=== PATIENT | female | born 1970 | race Caucasian/White ===

== ENCOUNTER → 2019-09-08 | Outpatient (CLI) | payer BC ==
[~2019-09-08] MED LIST: IOPAMIDOL 370 MG/ML 200 ML INFUS..BTL INJ ONE; SODIUM CHLORIDE 0.9% 50ML 50 ML ONE
--- NOTE | 2019-09-08 12:18 | Diagnostic Imaging Report ---
CT of the abdomen and pelvis, with contrast, 09/08/2019. History: Generalized abdominal pain. Comparison: None available. Technique: Multidetector CT scanning of the abdomen and pelvis was performed from the level of the lung bases to the inferior pubic rami after intravenous administration of contrast. Coronal and sagittal multiplanar reformations were obtained. RADIATION DOSE: Total DLP: 643 mGy*cm Dose modulation, iterative reconstruction, and/or weight based adjustment of the mA/kV was utilized to reduce the radiation dose to as low as reasonably achievable. Discussion: LUNG BASES: No visualized abnormalities. ABDOMEN: Cholecystectomy clips are present. A subcentimeter hypodensity is present in the right renal lower pole which is too small to characterize. The liver, biliary tree, spleen, pancreas, adrenal glands, and left kidney are normal. The hepatic vein, portal vein, and splenic vein are patent. The abdominal aorta is within normal limits for size. A retroaortic left renal vein is noted. A tiny fat-containing umbilical hernia is present. A 4 cm abdominal wall mesh is present in the midline superiorly. There is no recurrent ventral hernia. There is no adjacent fluid or inflammatory change. The stomach, small bowel, and large bowel are unremarkable. There is no bowel dilatation. The appendix is visualized and is normal. There is no evidence of adenopathy or free fluid. PELVIS: The bladder, uterus, and adnexa are normal in appearance. There is no evidence of free fluid or adenopathy. BONES AND SOFT TISSUES: No acute abnormality. IMPRESSION: 1. Small superior abdominal wall mesh without evidence of recurrent ventral hernia or associated abdominal wall abnormality. 2. Tiny fat-containing umbilical hernia. 3. Status post cholecystectomy. 4. Subcentimeter right renal hypodensity which is too small to characterize. Signed by: Cordell Allen on 09/08/2019 12:15 PM
== END ==
LOC: CT 09:40
PROVIDERS: ATTEND Internal Medicine Gastroenterology
DX: R10.84 Generalized abdominal pain (principal)
CPT/HCPCS: 74177; 81025; Q9967

== ENCOUNTER → 2019-10-05 | Day surgery (SDC) | payer BC ==
[~2019-10-05] MED LIST changes: +FENTANYL CITRATE/PF 100MCG/2 ML INJ ONE; +HYOSCYAMINE 0.125 MG TAB ONE; -IOPAMIDOL 370 MG/ML 200 ML INFUS..BTL INJ ONE; +LEXAPRO10 MG PO; +MIDAZOLAM HCL 2 MG/2 ML VIAL ONE; +OMEPRAZOLE40 MG PO; +PROPOFOL IV EMULSION 10 MG/ML 50 ML VIAL ONE; -SODIUM CHLORIDE 0.9% 50ML 50 ML ONE; +[UNRECOGNIZED DRUG - OTHER] PO
--- OUTSIDE RECORDS SUMMARY | 2019-10-05 10:52 | XMS REPORT ---
Author Author [facility] Organization [facility] Address Unknown Phone Unavailable Care Team Providers Care Research Rn Spec Name Role Phone ROSA COELLO Unavailable Unavailable Payers Payer Name Policy Type Policy Number Effective Date Expiration Date Problems This patient has no known problems. Allergies, Adverse Reactions, Alerts Allergy Name Allergy Type Status Severity Reaction(s) Onset Date Inactive Date Treating Clinician Comments Penicillins DA Active LA 2017-07-17 00:00:00 aspirin DA Active SV 2017-07-17 00:00:00 gluten FA Active SV 2017-07-17 00:00:00 Medications This patient has no known medications. Results Test Description Test Time Test Comments Text Results Atomic Results Result Comments CT ABDOMEN/PELVIS W 2019-09-08 11:55:00 [place] [address] Patient Name: AZAEL MAHAN MR #: [id number] : 1970 Age/Sex: 49/F Req #: [id number] Adm Physician: Ordered by: ROSA COELLO MD Report #: [id number] Location: CT Room/Bed: Procedure: [id number] CT/CT ABDOMEN/PELVIS W Exam Date: 09/08/19 Exam Time: 1030 REPORT STATUS: Signed CT of the abdomen and pelvis, with contrast, 019. History: Generalized abdominal pain. Comparison: None available. Technique: Multidetector CT scanning of the abdomen and pelvis was performed from the level of the lung bases to the inferior pubic rami after intravenous administration of contrast. Coronal and sagittal multiplanar reformations were obtained. RADIATION DOSE: Total DLP: 643 mGy*cm Dose modulation, iterative reconstruction, and/or weight based adjustment of the mA/kV was utilized to reduce the radiation dose to as low as reasonably achievable. Discussion: LUNG BASES: No visualized abnormalities. ABDOMEN: Cholecystectomy clips are present. A subcentimeter hypodensity is present in the right renal lower pole which is too small to characterize. The liver, biliary tree, spleen, pancreas, adrenal glands, and left kidney are normal. The hepatic vein, portal vein, and splenic vein are patent. The abdominal aorta is within normal limits for size. A retroaortic left renal vein is noted. A tiny fat-containing umbilical hernia is present. A 4 cm abdominal wall mesh is present in the midline superiorly. There is no recurrent ventral hernia. There is no adjacent fluid or inflammatory change. The stomach, small bowel, and large bowel are unremarkable. There is no bowel dilatation. The appendix is visualized and is normal. There is no evidence of adenopathy or free fluid. PELVIS: The bladder, uterus, and adnexa are normal in appearance. There is no evidence of free fluid or adenopathy. BONES AND SOFT TISSUES: No acute abnormality. IMPRESSION: 1. Small superior abdominal wall mesh without evidence of recurrent ventral hernia or associated abdominal wall abnormality. 2. Tiny fat-containing umbilical hernia. 3. Status post cholecystectomy. 4. Subcentimeter right renal hypodensity which is too small to characterize. Signed by: Deisy Allen on 09/08/2019 12:15 PM Dictated By: DEISY ALLEN MD Transcribed By: DORETHA on 09/08/191214 COPY TO: ROSA COELLO MD
[2019-10-05 16:05] VITALS: BP 122/80
[2019-10-05 16:05] LABS: WBC,FECAL (FECAL LACTOFERRIN) NEGATIVE (NEGATIVE)
--- NOTE | 2019-10-06 05:59 | Operative Report ---
DATE OF PROCEDURE: SURGEON: Mundo Vicente MD PROCEDURES: EGD with biopsies and colonoscopy with polypectomy and biopsies. REFERRING PHYSICIAN: Dr. Stoddard. INDICATION FOR EGD: Dyspepsia. INDICATIONS FOR COLONOSCOPY: Crampy lower abdominal pain, chronic diarrhea. MEDICATIONS: The patient was done under MAC, please see anesthesiologist's note. PROCEDURE IN DETAIL: With the patient in the left lateral decubitus position, a flexible fiberoptic Olympus gastroscope was introduced into the esophagus under direct visualization without any difficulty. There was some patchy erythema noted in distal esophagus. Minute tongues of velvety red mucosa were noted to extend proximally from the GE junction. Biopsies were obtained to rule out Christine's. The scope was then advanced with ease into the stomach traversing a small hiatal hernia. Mucosa overlying the antrum and the body revealed some diffuse erythema and [id number] edema and biopsies were obtained, sent to stain for H. pylori. Minute hyperplastic appearing polyps were noted in the body of the stomach and some were partially excised with the cold biopsy forceps. The pylorus was intubated with ease and the scope was advanced all the way to the second portion of the duodenum. Biopsies were obtained from the second portion and duodenal bulb to rule out sprue. The scope was then withdrawn back into the stomach and retroflexed, and mucosa overlying the fundus and cardia appeared to be within normal limits. The scope was then straightened out, it was subsequently withdrawn. The patient tolerated the procedure well. IMPRESSION: 1. Mild distal esophagitis. 2. Rule out Christine esophagus. 3. Small sliding hiatal hernia. 4. Gastritis, biopsied, biopsies sent to stain for H. pylori. 5. Gastric polyps, hyperplastic appearing, body of stomach, partially excised with the cold biopsy forceps. DICTATION ENDS HERE Mundo Vicente MD [facility] [place] /[id number]
[2019-10-06 15:14] LABS: C DIFFICILE TOXIN A&B AMP PROB NEGATIVE (NEGATIVE)
== END | disposition home or self-care (01) ==
LOC: OR 10:46
PROVIDERS: ATTEND Internal Medicine Gastroenterology
DX: R19.7 Diarrhea, unspecified (principal); R10.9 Unspecified abdominal pain; K90.0 Celiac disease; K92.1 Melena; Z88.6 Allergy status to analgesic agent; Z88.0 Allergy status to penicillin; Z91.018 Allergy to other foods; E06.3 Autoimmune thyroiditis; K44.9 Diaphragmatic hernia without obstruction or gangrene; R06.02 Shortness of breath; K20.9 Esophagitis, unspecified; K29.70 Gastritis, unspecified, without bleeding; K31.7 Polyp of stomach and duodenum; K63.5 Polyp of colon; K51.50 Left sided colitis without complications; Z98.890 Other specified postprocedural states; K62.89 Other specified diseases of anus and rectum; K64.8 Other hemorrhoids; K31.9 Disease of stomach and duodenum, unspecified
CPT/HCPCS: 36415; 43239; 45380; 83630; 83993; 84702; 87045; 87177; 87328; 87493; J2250; J2704; J3010; 45378; 45384

== ENCOUNTER 2022-06-18 15:26 | Emergency (ER) | payer BC ==
[~2022-06-18] VITALS: Ht 172.7 cm; Wt 99.8 kg
[~2022-06-18 15:26] MED LIST changes: -FENTANYL CITRATE/PF 100MCG/2 ML INJ ONE; -HYOSCYAMINE 0.125 MG TAB ONE; -MIDAZOLAM HCL 2 MG/2 ML VIAL ONE; -PROPOFOL IV EMULSION 10 MG/ML 50 ML VIAL ONE
[2022-06-18 15:54] LABS: BASOPHILS % 0.8 % (0.0-1.0); EOSINOPHILS # (AUTO) 0.1 (0.0-0.4); EOSINOPHILS % 2.3 % (0.0-6.0); HEMATOCRIT 38.2 % (34.2-44.1); HEMOGLOBIN 12.6 g/dL (12.0-16.0); LYMPHOCYTES # (AUTO) 1.4 (1.0-3.2); LYMPHOCYTES % 27.1 % (18.0-39.1); MEAN CORPUSCULAR HEMOGLOBIN 28.8 pg (28-32); MEAN CORPUSCULAR VOLUME 87.4 fL (81-99); MONOCYTES # (AUTO) 0.4 (0.2-0.8); NEUTROPHILS # (AUTO) 3.2 (2.1-6.9); NEUTROPHILS % 61.4 % (38.7-80.0); PLATELET COUNT 332 x10e3/uL (140-360); RED BLOOD COUNT 4.37 x10e6/uL (3.6-5.1)
[2022-06-18 16:14] LABS: ALBUMIN 3.6 g/dL (3.5-5.0); ALBUMIN/GLOBULIN RATIO 0.9 (0.8-2.0); ANION GAP 15.1 mmol/L (8-16); CALCIUM 8.8 mg/dL (8.4-10.2); CREATININE, SERUM 0.77 mg/dL (0.57-1.11); POTASSIUM 4.1 mmol/L (3.5-5.1)
[2022-06-18 17:28] VITALS: BP 123/77
== END 2022-06-18 17:58 | disposition home or self-care (01) ==
LOC: ER 15:31
DX: R06.02 Shortness of breath (principal); R07.89 Other chest pain; I10 Essential (primary) hypertension; I50.9 Heart failure, unspecified
CPT/HCPCS: 36415; 71045; 80053; 83880; 84484; 85025; 93005; 99284

== ENCOUNTER → 2022-11-06 | Outpatient (CLI) | payer BC | LOC: MRI 10:03 | PROVIDERS: ATTEND Specialist | DX: M23.91 Unspecified internal derangement of right knee (principal) ==

== ENCOUNTER → 2025-01-31 | Day surgery (SDC) | payer BC ==
[~2025-01-31] MED LIST changes: +B12 ACTIVE1000 MCG; +CLARITIN10 MG PO; +D3-5000125 MCG; +DIM PLUS CDG C1 EACH; +FENTANYL CITRATE/PF 100MCG/2 ML INJ ONE; +GLUCAGON FOR INJ 1 MG VIAL ONE; +LIDOCAINE HCL 2% LOCAL INJ 5 ML SDV VIAL INJ ONE; +METOCLOPRAMIDE HCL 10 MG/2ML VIAL ONE; +MIDAZOLAM HCL 2 MG/2 ML VIAL ONE; +MOUNJARO15 MG/0.5; +PROPOFOL IV EMULSION 10 MG/ML 20 ML VIAL ONE; +PROPOFOL IV EMULSION 50 ML IV ONE; +TRAZODONE HCL100 MG PO
[2025-01-31] MEDS: LACTATED RINGER'S 1,000 ML ONE (11:03)
[2025-01-31 12:59] VITALS: TEMP 97.8
[2025-01-31 13:30] VITALS: BP 121/65; PULSE 79; RESP 14; O2SAT 97
[2025-02-03 13:12] LABS: ENDOMYSIAL ANTIBODIES, IGA Negative (Negative)
[2025-02-03 13:49] LABS: IMMUNOGLOBULIN A 209 mg/dL (87-352); TISSUE TRANSGLUTAMINASE IGA AB 3 U/mL (0-3)
== END | disposition home or self-care (01) ==
LOC: OR 10:48
PROVIDERS: ATTEND Internal Medicine Gastroenterology
DX: K29.50 Unspecified chronic gastritis without bleeding (principal); Z86.0100 Personal history of colon polyps, unspecified; K31.7 Polyp of stomach and duodenum; K29.80 Duodenitis without bleeding; K31.89 Other diseases of stomach and duodenum; K20.90 Esophagitis, unspecified without bleeding; K90.0 Celiac disease; K44.9 Diaphragmatic hernia without obstruction or gangrene; K21.9 Gastro-esophageal reflux disease without esophagitis; K64.8 Other hemorrhoids; D72.820 Lymphocytosis (symptomatic); F41.9 Anxiety disorder, unspecified; Z72.0 Tobacco use; Z88.6 Allergy status to analgesic agent; Z88.0 Allergy status to penicillin; Z01.810 Encounter for preprocedural cardiovascular examination; Z79.85 Long-term (current) use of injectable non-insulin antidiabetic drugs; Z79.899 Other long term (current) drug therapy
CPT/HCPCS: 36415; 43239; 43251; 45378; 82784; 83516; 84702; 86256; 93005; J1610; J2003; J2250; J2470; J2704 ×2; J2765; J3010; J7121